=== PATIENT | male | born 1955 | race Caucasian/White ===

== ENCOUNTER 2017-12-15 10:30 | Emergency (ER) | payer OTHER ==
[2014-12-28 18:00] VITALS: Wt 67.1 kg
[~2017-12-15 10:30] MED LIST: MECL-81 PO; METF-410 PO; METF-420 PO; METXR500 PO; ONDA8TAB98 PO; PENI-24 PO; PER PO; PRAV40TA78 PO; TAMS0.4C25 PO; TUM500 PO
--- NOTE | 2017-12-15 10:33 | ER Report ---
History and Physical Time Seen By MD: 10:32 HPI/ROS CHIEF COMPLAINT: Nausea and vomiting HISTORY OF PRESENT ILLNESS: Patient is a 62-year-old male with history of type II diabetes who presents with a complaint of nausea with vomiting and crampy abdominal pain and watery diarrhea that began on Thursday. Patient also complaining of some chest pain and shortness of breath. This also has been present since Thursday. No fevers or chills. Patient is a nonsmoker. Patient denies any history of heart disease.Patient's son had contracted influenza a few weeks ago developed acute respiratory distress syndrome and was transferred to [facility]. They have been traveling back and forth to [place] to visit their son. REVIEW OF SYSTEMS: Constitutional: No fever, no chills. Eyes: No discharge. ENT: No sore throat. Cardiovascular: Chest discomfort, no palpitations Respiratory: No cough, reports some dyspnea Gastrointestinal: Generalized abdominal pain, nausea, vomiting and diarrhea no blood Genitourinary: No hematuria. Musculoskeletal: No back pain. Skin: No rashes. Neurological: No headache. Allergies: Coded Allergies: onion (Verified Allergy, Mild, NAUSEA/VOMITING, 12/15/17) Home Meds Reported Medications Canagliflozin (INVOKANA) 300 Mg Tablet, 300 MG PO QDAY 12/15/17 Discontinued Reported Medications Pravastatin Sodium (PRAVASTATIN SODIUM) 40 Mg Tablet, 1 TAB PO QHS, #90 11/22/15 Metformin Hcl (METFORMIN HCL) 500 Mg Tablet, 1 TAB PO 3XW, #360 11/22/15 Discontinued Scripts Ondansetron (ONDANSETRON ODT) 8 Mg Tab.rapdis, 8 MG PO Q4-6H, #10 Prov:SALIMA ELIZABETH DO 01/21/16 Meclizine Hcl (ANTIVERT) 25 Mg Tablet, 25 MG PO QID, #20 Prov:SALIMA ELIZABETH DO 01/21/16 Past Medical/Surgical History Past medical history significant for type II diabetes. Hx Smoking: No Smoking Status: Never Smoker Hx Substance Use Disorder: No Hx Alcohol Use: No Constitutional Vital Sign - Last 24 Hours 12/15/17 12/15/17 12/15/17 12/15/17 10:37 10:37 10:45 11:00 Temp 97.8 Pulse 86 84 75 Resp 20 26 17 B/P (MAP) 122/85 122/85 (97) 127/85 (99) 123/83 (96) Pulse Ox 90 92 93 O2 Delivery Room Air 12/15/17 12/15/17 11:02 11:15 Resp 23 B/P (MAP) 118/80 (93) Pulse Ox 92 O2 Flow Rate 2.0 Physical Exam General Appearance: The patient is alert, has no immediate need for airway protection and no signs of toxicity. Eyes: Pupils equal and round no pallor or injection. ENT, Mouth: Mucous membranes are moist. Respiratory: There are no retractions, lungs are clear to auscultation. Cardiovascular: Regular rate and rhythm. Gastrointestinal: Abdomen is soft and non tender, no masses, bowel sounds normal. Neurological: Awake and alert Skin: Warm and dry, no rashes. Musculoskeletal: Neck is supple non tender. Extremities are nontender, nonswollen and have full range of motion. Medical Decision Making Data Points Result Diagram: 12/15/17 1042 12/15/17 1042 Laboratory Hematology Test 12/15/17 10:32 12/15/17 10:42 12/15/17 10:47 Urine Color Yellow Urine Clarity Clear Urine pH 6.0 pH (4.8-9.5) Urine Specific [place] 1.030 Urine Protein 30 mg/dL (NEGATIVE) Urine Glucose (UA) >1000 mg/dL (NEGATIVE) Urine Ketones >=80 mg/dL (NEGATIVE) Urine Blood Trace lysed (NEGATIVE) Urine Nitrite Negative (NEGATIVE) Urine Bilirubin Moderate (NEGATIVE) Urine Urobilinogen 0.2 mg/dL (0.2-1.9) Urine Leukocyte Esterase Negative (NEGATIVE) Urine RBC None /HPF (0-2/HPF) Urine WBC 0-1 /HPF (0-5/HPF) Urine Squamous Epithelial Cells None /LPF (</=FEW) Urine Renal Epithelial Cells /LPF (NONE-FEW) Urine Bacteria Negative /HPF (NONE-FEW) Urine Mucus None /HPF (NONE-FEW) Red Blood Count 5.98 M/uL (4.00-5.60) Mean Corpuscular Volume 91.9 fL (80.0-96.0) Mean Corpuscular Hemoglobin 31.5 pg (26.0-33.0) Mean Corpuscular Hemoglobin Concent 34.3 g/dL (32.0-36.0) Red Cell Distribution Width 13.5 % (11.5-14.5) Mean Platelet Volume 8.9 fL (7.2-11.1) Neutrophils (%) (Auto) 74.7 % (39.4-72.5) Lymphocytes (%) (Auto) 16.1 % (17.6-49.6) Monocytes (%) (Auto) 7.9 % (4.1-12.4) Eosinophils (%) (Auto) 0.8 % (0.4-6.7) Basophils (%) (Auto) 0.5 % (0.3-1.4) Nucleated RBC Relative Count (auto) 0.1 /100WBC Neutrophils # (Auto) 5.4 K/uL (2.0-7.4) Lymphocytes # (Auto) 1.2 K/uL (1.3-3.6) Monocytes # (Auto) 0.6 K/uL (0.3-1.0) Eosinophils # (Auto) 0.1 K/uL (0.0-0.5) Basophils # (Auto) 0.0 K/uL (0.0-0.1) Nucleated RBC Absolute Count (auto) 0.01 K/uL Prothrombin Time 13.6 seconds (12.0-14.4) Prothromb Time International Ratio 1.04 Activated Partial Thromboplast Time 26 seconds (23-35) Sodium Level 139 mmol/L (137-145) Potassium Level 4.5 mmol/L (3.5-5.0) Chloride Level 101 mmol/L (98-107) Carbon Dioxide Level 13 mmol/L (22-30) Blood Urea Nitrogen 24 mg/dl (9-21) Creatinine 0.90 mg/dl (0.66-1.25) Glomerular Filtration Rate Calc > 60.0 Random Glucose 203 mg/dl (75-110) Calcium Level 8.7 mg/dl (8.4-10.2) Total Bilirubin 0.9 mg/dl (0.2-1.3) Aspartate Amino Transf (AST/SGOT) 43 U/L (0-35) Alanine Aminotransferase (ALT/SGPT) 49 U/L (0-56) Alkaline Phosphatase 85 U/L (0-126) Troponin I < 0.012 ng/ml Total Protein 8.2 gm/dl (6.3-8.2) Albumin 4.6 g/dl (3.5-5.0) Lipase 43 U/L (23-300) Influenza Virus Type A (PCR) Negative (NEGATIVE) Influenza Virus Type B (PCR) Negative (NEGATIVE) Chemistry Test 12/15/17 10:32 12/15/17 10:42 12/15/17 10:47 Urine Color Yellow Urine Clarity Clear Urine pH 6.0 pH (4.8-9.5) Urine Specific [place] 1.030 Urine Protein 30 mg/dL (NEGATIVE) Urine Glucose (UA) >1000 mg/dL (NEGATIVE) Urine Ketones >=80 mg/dL (NEGATIVE) Urine Blood Trace lysed (NEGATIVE) Urine Nitrite Negative (NEGATIVE) Urine Bilirubin Moderate (NEGATIVE) Urine Urobilinogen 0.2 mg/dL (0.2-1.9) Urine Leukocyte Esterase Negative (NEGATIVE) Urine RBC None /HPF (0-2/HPF) Urine WBC 0-1 /HPF (0-5/HPF) Urine Squamous Epithelial Cells None /LPF (</=FEW) Urine Renal Epithelial Cells /LPF (NONE-FEW) Urine Bacteria Negative /HPF (NONE-FEW) Urine Mucus None /HPF (NONE-FEW) White Blood Count 7.2 k/uL (4.5-11.0) Red Blood Count 5.98 M/uL (4.00-5.60) Hemoglobin 18.9 g/dL (14.0-18.0) Hematocrit 54.9 % (42.0-52.0) Mean Corpuscular Volume 91.9 fL (80.0-96.0) Mean Corpuscular Hemoglobin 31.5 pg (26.0-33.0) Mean Corpuscular Hemoglobin Concent 34.3 g/dL (32.0-36.0) Red Cell Distribution Width 13.5 % (11.5-14.5) Platelet Count 170 K/uL (150-450) Mean Platelet Volume 8.9 fL (7.2-11.1) Neutrophils (%) (Auto) 74.7 % (39.4-72.5) Lymphocytes (%) (Auto) 16.1 % (17.6-49.6) Monocytes (%) (Auto) 7.9 % (4.1-12.4) Eosinophils (%) (Auto) 0.8 % (0.4-6.7) Basophils (%) (Auto) 0.5 % (0.3-1.4) Nucleated RBC Relative Count (auto) 0.1 /100WBC Neutrophils # (Auto) 5.4 K/uL (2.0-7.4) Lymphocytes # (Auto) 1.2 K/uL (1.3-3.6) Monocytes # (Auto) 0.6 K/uL (0.3-1.0) Eosinophils # (Auto) 0.1 K/uL (0.0-0.5) Basophils # (Auto) 0.0 K/uL (0.0-0.1) Nucleated RBC Absolute Count (auto) 0.01 K/uL Prothrombin Time 13.6 seconds (12.0-14.4) Prothromb Time International Ratio 1.04 Activated Partial Thromboplast Time 26 seconds (23-35) Glomerular Filtration Rate Calc > 60.0 Calcium Level 8.7 mg/dl (8.4-10.2) Total Bilirubin 0.9 mg/dl (0.2-1.3) Aspartate Amino Transf (AST/SGOT) 43 U/L (0-35) Alanine Aminotransferase (ALT/SGPT) 49 U/L (0-56) Alkaline Phosphatase 85 U/L (0-126) Troponin I < 0.012 ng/ml Total Protein 8.2 gm/dl (6.3-8.2) Albumin 4.6 g/dl (3.5-5.0) Lipase 43 U/L (23-300) Influenza Virus Type A (PCR) Negative (NEGATIVE) Influenza Virus Type B (PCR) Negative (NEGATIVE) Coagulation Test 12/15/17 10:42 Prothrombin Time 13.6 seconds Prothromb Time International Ratio 1.04 Activated Partial Thromboplast Time 26 seconds Urinalysis Test 12/15/17 10:32 Urine Color Yellow Urine Clarity Clear Urine pH 6.0 pH (4.8-9.5) Urine Specific [place] 1.030 Urine Protein 30 mg/dL (NEGATIVE) Urine Glucose (UA) >1000 mg/dL (NEGATIVE) Urine Ketones >=80 mg/dL (NEGATIVE) Urine Blood Trace lysed (NEGATIVE) Urine Nitrite Negative (NEGATIVE) Urine Bilirubin Moderate (NEGATIVE) Urine Urobilinogen 0.2 mg/dL (0.2-1.9) Urine Leukocyte Esterase Negative (NEGATIVE) Urine RBC None /HPF (0-2/HPF) Urine WBC 0-1 /HPF (0-5/HPF) Urine Squamous Epithelial Cells None /LPF (</=FEW) Urine Renal Epithelial Cells /LPF (NONE-FEW) Urine Bacteria Negative /HPF (NONE-FEW) Urine Mucus None /HPF (NONE-FEW) EKG/Imaging EKG Interpretation EKG shows normal sinus rhythm with ventricular rate of 84 bpm with a right bundle branch block. Monitor Interpretation: Normal Sinus Rhythm Imaging [place] [facility] [place]IENT NAME: Yasir Marie : 1955 MR: [id number] V: [id number] EXAM DATE: ORDERING PHYSICIAN: CARINA ELDRIDGE TECHNOLOGIST: Location: [facility] [place] Patient: Yasir Marie : 1955 Visit/Account:[id number] Date of Sevice: 12/15/2017 EXAMINATION: CT abdomen and pelvis with contrast COMPARISON: None. HISTORY: Crampy abdominal pain. PROCEDURE: Multiplanar contrast enhanced CT of the abdomen and pelvis with 75 mL intravenous Isovue 370. One of the following dose optimization techniques was utilized in the performance of this exam: Automated exposure control; adjustment of the mA and/or kV according to the patient's size; or use of an iterative reconstruction technique. Specific details can be referenced in the facility's radiology CT exam operational policy. FINDINGS: Visualized thorax: Negative. Liver: Advanced hepatic steatosis. Gallbladder and biliary system: Negative Spleen: Spleen size is normal. Pancreas: Negative. Adrenal glands: Negative. Kidneys and bladder: No renal mass or evidence of an obstructive uropathy. Urinary bladder is unremarkable. Vessels: Mild aortoiliac atherosclerosis. No abdominal aortic aneurysm. Portal venous system and IVC are unremarkable. Bowel and mesentery: Stomach is within normal limits. Small bowel and appendix are unremarkable. Small amount of stool in the colon. Pancolonic mild diverticulosis. No bowel or mesenteric inflammation. Pelvic organs: Enlarged and heterogeneous prostate. Lymph nodes: No adenopathy. Free air/free fluid: None. Abdominal wall and osseous structures: Within normal limits. IMPRESSION: 1. No findings of acute disease in the abdomen or pelvis. 2. Advanced hepatic steatosis. 3. Pancolonic diverticulosis. No diverticulitis. Report Dictated By: Jesús Juárez MD at 12/15/2017 12:11 PM Report E-Signed By: Jesús Juárez MD at 12/15/2017 12:16 PM WSN:[id number] [place] [facility] [place]IENT NAME: Yasir Marie : 1955 MR: [id number] V: [id number] EXAM DATE: ORDERING PHYSICIAN: CARINA ELDRIDGE TECHNOLOGIST: Location: [facility] [place] Patient: Yasir Marie : 1955 Visit/Account:[id number] Date of Sevice: 12/15/2017 Technique: CHEST PA AND LAT HISTORY: Shortness of breath while lying down Comparison studies: Chest radiograph August 08, 2010 FINDINGS: No lobar airspace consolidation. No pleural effusion. The cardiac silhouette is unremarkable. IMPRESSION: 1. No acute cardiopulmonary process. Report Dictated By: Dillon White DO at 12/15/2017 11:26 AM Report E-Signed By: Dillon White DO at 12/15/2017 11:28 AM WSN:[id number] ED Course/Re-evaluation Clinical Indication for ER IV: Hydration, IV Access ED Course 12/15/2017 1:13:16 pm patient was admitted to the emergency department history physical exam was performed. Differential diagnosis was formulated. Patient received 2 L of IV fluids along with a total of 8 mg of Zofran with improvement of symptoms. Discussed with family that based on blood work patient is dehydrated and encouraged fluids at home. Abdominal CT is unremarkable EKG and troponin are negative. Influenza screen was negative as well. Plan at this time will be discharged home with close follow-up with primary care provider and to return to the emergency department if symptoms worsen. Decision to Disposition Date: Dec 15, 2017 Decision to Disposition Time: 13:14 Depart Departure Latest Vital Signs Vital Signs Date Time Temp Pulse Resp B/P (MAP) Pulse Ox O2 Delivery O2 Flow Rate FiO2 12/15/17 11:15 23 118/80 (93) 92 12/15/17 11:02 2.0 12/15/17 11:00 75 12/15/17 10:37 97.8 Room Air Impression: Primary Impression: Dehydration Additional Impression: Nausea & vomiting Condition: Improved Disposition: HOME OR SELF-CARE Referrals: GWENDOLYN IVERSON MD (PCP) 2 Days If symptoms persist New Scripts Diphenoxylate Hcl/Atropine (LOMOTIL TABLET) 1 Each Tablet 1 EACH PO Q4H for diarrhea, #16 TAB 0 Refills Prov: CARINA ELDRIDGE MD 12/15/17 Ondansetron (ZOFRAN ODT) 4 Mg Tab.rapdis 4 MG PO Q8H Y for NAUSEA, #20 TAB.HAWK 0 Refills Prov: CARINA ELDRIDGE MD 12/15/17 Departure Forms: ER Transition Record, Medications Reconciliation, Off Work/ School Form, School or Work Release?: Work Number of days to be released: 2 Patient Portal Information Patient Instructions: Acute Nausea and Vomiting (ED), Dehydration (ED) Problem Qualifiers Additional Impression: Nausea & vomiting Vomiting type: unspecified Vomiting Intractability: unspecified Qualified Codes: R11.2 - Nausea with vomiting, unspecified CARINA ELDRIDGE MD Dec 15, 2017 10:33
[2017-12-15] MEDS ORDERED: LR(*) 1000 ML BAG 1,000 ML IV ONE (10:44)
[2017-12-15] MEDS ORDERED: ONDANSETRON 4 MG/2 ML VIAL IVP ONE ×2 (10:45→12:05)
[2017-12-15] MEDS ORDERED: KETOROLAC 15 MG/ML VIAL IVP ONE (10:45)
[2017-12-15] MEDS ORDERED: CANA300T PO (10:46)
--- NOTE | 2017-12-15 10:54 | EKG ---
FACILITY: PATIENT NAME: ALLI NUNES : [id number] MR: [id number] V: [id number] EXAM DATE: ORDERING PHYSICIAN: CARINA ELDRIDGE TECHNOLOGIST: JOSS Shannon Reason : SOB Blood Pressure : / mmHG Vent. Rate : 084 BPM Atrial Rate : 084 BPM P-R Int : 166 ms QRS Dur : 146 ms QT Int : 418 ms P-R-T Axes : -05 236 011 degrees QTc Int : 493 ms Normal sinus rhythm Right bundle branch block Abnormal ECG When compared with ECG of 21-JAN-2016 10:07, T wave inversion now evident in Anterior leads Confirmed by AURORA FRANCE ([id number]) on 12/17/2017 2:13:40 PM Referred By: CHENTE Confirmed By:AURORA FRANCE
[2017-12-15 10:56] LABS: PLATELET COUNT, AUTOMATED 170 K/uL (150-450)
[2017-12-15 11:02] LABS: INR 1.04
[2017-12-15] MEDS ORDERED: NS(*) 0.9% 1000 ML BAG 1,000 ML IV ONE (11:30)
--- NOTE | 2017-12-15 11:32 | RADIOLOGY IMAGING REPORT ---
FACILITY: [facility] - [place] PATIENT NAME: Yasir Marie : 1955 MR: [id number] V: [id number] EXAM DATE: ORDERING PHYSICIAN: CARINA ELDRIDGE TECHNOLOGIST: Location: [facility] Patient: Yasir Marie : 1955 Visit/Account:[id number] Date of Sevice: 12/15/2017 Technique: CHEST PA AND LAT HISTORY: Shortness of breath while lying down Comparison studies: Chest radiograph August 08, 2010 FINDINGS: No lobar airspace consolidation. No pleural effusion. The cardiac silhouette is unremarka ble. IMPRESSION: 1. No acute cardiopulmonary process. Report Dictated By: Dillon White DO at 12/15/2017 11:26 AM Report E-Signed By: Dillon White DO at 12/15/2017 11:28 AM WSN:[id number]
[2017-12-15] MEDS ORDERED: IOPAMIDOL 76% 75 ML INFUS BTL 75 ML ONE (11:38)
--- NOTE | 2017-12-15 12:20 | RADIOLOGY IMAGING REPORT ---
FACILITY: [facility] - [place] PATIENT NAME: Yasir Marie : 1955 MR: [id number] V: [id number] EXAM DATE: ORDERING PHYSICIAN: CARINA ELDRIDGE TECHNOLOGIST: Location: [facility] Patient: Yasir Marie : 1955 Visit/Account:[id number] Date of Sevice: 12/15/2017 EXAMINATION: CT abdomen and pelvis with contrast COMPARISON: None. HISTORY: Crampy abdominal pain. PROCEDURE: Multiplanar contrast enhanced CT of the abdomen and pelvis with 75 mL intravenous Isovue 3 70. One of the following dose optimization techniques was utilized in the performance of this exam: A utomated exposure control; adjustment of the mA and/or kV according to the patient's size; or use of an iterative reconstruction technique. Specific details can be referenced in the facility's radiolo gy CT exam operational policy. FINDINGS: Visualized thorax: Negative. Liver: Advanced hepatic steatosis. Gallbladder and biliary system: Negative Spleen: Spleen size is normal. Pancreas: Negative. Adrenal glands: Negative. Kidneys and bladder: No renal mass or evidence of an obstructive uropathy. Urinary bladder is unrema rkable. Vessels: Mild aortoiliac atherosclerosis. No abdominal aortic aneurysm. Portal venous system and IVC are unremarkable. Bowel and mesentery: Stomach is within normal limits. Small bowel and appendix are unremarkable. Smal l amount of stool in the colon. Pancolonic mild diverticulosis. No bowel or mesenteric inflammation. Pelvic organs: Enlarged and heterogeneous prostate. Lymph nodes: No adenopathy. Free air/free fluid: None. Abdominal wall and osseous structures: Within normal limits. IMPRESSION: 1. No findings of acute disease in the abdomen or pelvis. 2. Advanced hepatic steatosis. 3. Pancolonic diverticulosis. No diverticulitis. Report Dictated By: Jesús Juárez MD at 12/15/2017 12:11 PM Report E-Signed By: Jesús Juárez MD at 12/15/2017 12:16 PM WSN:[id number]
[2017-12-15 13:00] VITALS: BP 116/80
[2017-12-15] MEDS ORDERED: ONDA4TAB PO (13:16)
[2017-12-15] MEDS ORDERED: DIPH-1 PO (13:16)
== END 2017-12-15 13:23 | disposition home or self-care (01) ==
LOC: ER 10:35
DX: E86.0 Dehydration (principal); R11.2 Nausea with vomiting, unspecified
CPT/HCPCS: 71046; 74177; 81001; 83690; 84484; 85025; 85610; 85730; 87502; 93005; 96361; 96374; 96375; 96376; 99284; J1885; J2405; J7030; J7120; Q9967; 82040; 82247; 82310; 82374; 82435; 82565; 82947; 84075; 84132; 84155; 84295; 84450; 84460; 84520

== ENCOUNTER → 2018-10-05 | Outpatient (CLI) | payer OTHER ==
[2014-12-28 18:00] VITALS: BMI 23.8
[~2018-10-05] MED LIST changes: +BARIUM SULFATE 176 GM BTL PO ONE; +BARIUM SULFATE 340 GM POWD ONE; +CANA300T PO; +DIPH-1 PO; -METF-410 PO; -METF-420 PO; +METF-450 PO; +METF-452 PO; +ONDA4TAB PO
--- NOTE | 2018-10-05 12:03 | RADIOLOGY IMAGING REPORT ---
FACILITY: [facility] PATIENT NAME: Yasir Marie : 1955 MR: [id number] V: [id number] EXAM DATE: ORDERING PHYSICIAN: AURORA CACERES TECHNOLOGIST: Location: [facility] [place] Patient: Yasir Marie : 1955 Visit/Account:[id number] Date of Sevice: 10/05/2018 Exam type: CHEST PA LAT History: Shortness of breath Comparison: December 15, 2017. Findings: The lungs are free of acute effusions, infiltrates or edema. The cardiac silhouette is normal in siz e. Trachea is in midline. Small tiny metallic densities project in the soft tissues just above the left pulmonary apex and are unchanged when compared to the prior study IMPRESSION: 1. No acute cardiopulmonary process seen Report Dictated By: Johanna Carpenter MD at 10/05/2018 11:56 AM Report E-Signed By: Johanna Carpenter MD at 10/05/2018 11:59 AM WSN:[email or web address]
--- NOTE | 2018-10-05 15:26 | RADIOLOGY IMAGING REPORT ---
FACILITY[place] [facility] [place] NAME: Yasir Marie : 1955 MR: [id number] V: [id number] EXAM DATE: ORDERING PHYSICIAN: AURORA CACERES TECHNOLOGIST: Location: [facility] [place] Patient: Yasir Marie : 1955 Visit/Account:[id number] Date of Sevice: 10/05/2018 Exam type: XR UPPER GI & SM BOWEL History: Nausea Comparison: CT abdomen and pelvis December 15, 2017. Findings: Double contrast upper GI series was performed with thick and thin barium and air contrast. There is a small hiatal hernia and mild narrowing at the lower esophageal sphincter. A Schatzki ring is prese nt. At least moderate amount of gastroesophageal reflux was observed. No mucosal erosions identifie d. The barium was then followed throughout the normal-appearing small bowel to the unremarkable term inal ileum. The mucosal pattern appeared unremarkable. There is no evidence of bowel obstruction or extrinsic mass effect. Transit time to the right-sided colon was one hour and five minutes. The fl uoroscopy dose area product was 834.78 micro-Santana per meter squared IMPRESSION: 1. Small hiatal hernia with mild narrowing of the lower esophageal sphincter. At least moderate gas troesophageal reflux was observed. Remainder the upper GI series and small bowel follow-through is unremarkable Report Dictated By: Johanna Carpenter MD at 10/05/2018 3:00 PM Report E-Signed By: Johanna Carpenter MD at 10/05/2018 3:12 PM WSN:[email or web address]
--- NOTE | 2018-10-07 10:01 | RADIOLOGY IMAGING REPORT ---
FACILITY: [facility] - [place] PATIENT NAME: Yasir Marie : 1955 MR: [id number] V: [id number] EXAM DATE: ORDERING PHYSICIAN: AURORA CACERES TECHNOLOGIST: Location: [facility] - [place] Patient: Yasir Marie : 1955 Visit/Account:[id number] Date of Sevice: 10/05/2018 GALLBLADDER HISTORY: Postprandial bloating COMPARISON: CT abdomen pelvis December 15, 2017 FINDINGS: Gallbladder: Unremarkable; no stones or sludge. Liver: There is diffuse hepatic steatosis and a mildly enlarged liver which corresponds to the recent CT findings measuring 17.1 cm in length. There is slightly irregular hypoechoic regions seen adjace nt to the gallbladder which corresponds to an area of probable focal fatty sparing seen adjacent to t he gallbladder on the prior CT. There is acoustic shadowing which appears to be emanating from the a nterior abdominal wall although discrete mass is not seen Common duct: Normal, three mm diameter. Pancreas: Partially obscured by bowel, visualized aspects unremarkable. Right kidney: The kidney appears unremarkable measuring 11.4 cm in length. Resistive index is 0.52 Upper abdominal aorta and IVC: Patent. Ascites: None visualized. IMPRESSION: Diffuse hepatic steatosis with a focal area of probable focal fatty sparing adjacent to the gallbladd er. Liver is mildly enlarged Gallbladder appears sonographically unremarkable Report Dictated By: Johanna Carpenter MD at 10/05/2018 11:14 AM Report E-Signed By: Johanna Carpenter MD at 10/07/2018 9:51 AM WSN:[email or web address]
--- NOTE | 2018-10-07 10:53 | RADIOLOGY IMAGING REPORT ---
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 FINDINGS: Grayscale, duplex and color Doppler interrogation of the extracranial carotid and vertebral arteries was performed bilateral. On the right, peak systolic velocities within the common and internal carotid arteries are 86 and 107 cm/sec respectively. There is mild intimal thickening in the right common carotid artery right rodriguez tid bulb. Antegrade flow within the common, internal and external carotid arteries as well as verteb ral artery. ICA/CCA ratio 1.3. On the left, peak systolic velocities within the common and internal carotid arteries are 140 and 82 cm/sec respectively. There is mild intimal thickening in the left common carotid artery and a small amount of plaque at the left carotid bulb extending into the proximal left internal carotid artery. Antegrade flow within the common, internal and external carotid arteries as well as vertebral artery. ICA/CCA ratio 0.8. In zone three on the right there is a 2.5 x 1.5 x 0.5 cm lymph node with a minimal fatty hilum. Also noted is a 0.7 x 0.9 x 0.3 cm lymph node with a fatty hilum IMPRESSION: Mild intimal thickening seen in the common carotid arteries bilaterally with a small amount of plaque seen in the left carotid bulb extending into the proximal left internal carotid artery. No hemodyna mically significant lesions identified by velocity criteria 2. Lymph nodes are identified in zone th ree on the right. The largest measures 2.5 x 1.5 x 0.5 cm with a minimal fatty hilum. Clinical khadar elation needed. Velocity criteria are extrapolated from diameter data as defined by the Society of Radiologists in [place] [facility] Consensus Conference Radiology 2003; 229;340-346 Report Dictated By: Johanna Carpenter MD at 10/05/2018 11:23 AM Report E-Signed By: Johanna Carpenter MD at 10/07/2018 10:48 AM WSN:[email or web address]
== END ==
LOC: RAD 01:18
PROVIDERS: ATTEND Surgery
DX: K44.9 Diaphragmatic hernia without obstruction or gangrene (principal); K21.9 Gastro-esophageal reflux disease without esophagitis; R06.00 Dyspnea, unspecified; R11.0 Nausea; R14.0 Abdominal distension (gaseous); Z86.39 Personal history of other endocrine, nutritional and metabolic disease; I65.23 Occlusion and stenosis of bilateral carotid arteries; K76.0 Fatty (change of) liver, not elsewhere classified; R16.0 Hepatomegaly, not elsewhere classified
CPT/HCPCS: 71046; 74245; 76705; 93880

== ENCOUNTER → 2018-10-08 | Outpatient (CLI) | payer OTHER ==
[2014-12-28 18:00] VITALS: BMI 23.8
[~2018-10-08] MED LIST changes: -BARIUM SULFATE 176 GM BTL PO ONE; -BARIUM SULFATE 340 GM POWD ONE
[2018-10-08 11:57] LABS: PLATELET COUNT, AUTOMATED 210 K/uL (150-450)
== END ==
LOC: LAB 11:30
PROVIDERS: ATTEND Surgery
DX: E11.9 Type 2 diabetes mellitus without complications (principal); R42 Dizziness and giddiness; R53.83 Other fatigue
CPT/HCPCS: 36415; 82040; 82247; 82248; 82310; 82374; 82435; 82565; 82947; 83036; 84075; 84132; 84155; 84295; 84443; 84450; 84460; 84520; 85025

== ENCOUNTER → 2018-10-15 | Outpatient (CLI) | payer OTHER ==
[2014-12-28 18:00] VITALS: BMI 23.8
[~2018-10-15] MED LIST changes: +IOPAMIDOL 76% 100 ML INFUS BTL 100 ML ONE; +NS(*) 0.9% 50 ML BAG 50 ML ONE
--- NOTE | 2018-10-15 09:02 | EKG ---
FACILITY: [facility] [place] PATIENT NAME: ALLI NUNES : [id number] MR: [id number] V: [id number] EXAM DATE: ORDERING PHYSICIAN: AURORA CACERES TECHNOLOGIST: JEOVANNY Test Reason : PRE OP Blood Pressure : / mmHG Vent. Rate : 071 BPM Atrial Rate : 071 BPM P-R Int : 162 ms QRS Dur : 138 ms QT Int : 416 ms P-R-T Axes : 002 230 020 degrees QTc Int : 452 ms Normal sinus rhythm Right bundle branch block Abnormal ECG When compared with ECG of 15-DEC-2017 10:45, No significant change was found Confirmed by DARIO GARCIA ([id number]) on 10/15/2018 8:08:14 PM Referred By: MORRIS Confirmed By:DARIO GARCIA
--- NOTE | 2018-10-15 11:27 | RADIOLOGY IMAGING REPORT ---
FACILITY: [facility] PATIENT NAME: Yasir Marie : 1955 MR: [id number] V: [id number] EXAM DATE: ORDERING PHYSICIAN: AURORA CACERES TECHNOLOGIST: Location: [facility] Patient: Yasir Marie : 1955 Visit/Account:[id number] Date of Sevice: 10/15/2018 Study: CT scan of the neck with intravenous contrast Indication: History of cancerous neck tumor, lymphadenopathy Contrast utilized:100 mL Isovue 370 Technique: Multiple axial images were obtained through the neck following the intravenous administrat ion of iodinated contrast. Coronal and sagittal two-dimensional reconstructions were made from the original data set. One of the following dose optimization techniques was utilized in the performance of this exam: Autom ated exposure control; adjustment of the mA and/or kV according to the patient's size; or use of an i terative reconstruction technique. Specific details can be referenced in the facility's radiology C T exam operational policy. Examination demonstrates no evidence of neck mass. There is no significant cervical adenopathy identi fied. There is a prominent lymph node present within the left level II region. This does not meet the size criteria for an abnormal lymph node. The tongue base and floor of mouth are unremarkable. There is no evidence of abnormality of the parotid or submandibular glands.1 The thyroid gland is unremarkable. The airway is unremarkable. The visualized bony structures are unremarkable. There is no evidence of abnormality of the visualize d superior mediastinum or lung apices. IMPRESSION: No significant abnormality identified. Report Dictated By: Thomas Geronimo at 10/15/2018 10:59 AM Report E-Signed By: Thomas Geronimo at 10/15/2018 11:20 AM WSN:[id number]
--- NOTE | 2018-10-15 13:38 | RADIOLOGY IMAGING REPORT ---
FACILITY: [facility] PATIENT NAME: Yasir Marie : 1955 MR: [id number] V: [id number] EXAM DATE: ORDERING PHYSICIAN: AURORA CACERES TECHNOLOGIST: Location: [facility] Patient: Yasir Marie : 1955 Visit/Account:[id number] Date of Sevice: 10/15/2018 CT CTA CHEST W & W/O CON HISTORY: History of colon cancer, history of tumor neck, history of lymphadenopathy, history of aort ic aneurysm ADDITIONAL HISTORY: None. TECHNIQUE: CTA chest with intravenous contrast. Axial imaging acquired following administration of IV contrast timed for maximum opacification of the pulmonary arterial vasculature. Slab 3-D MIP fercho nstructed images were also created for further evaluation and interpretation. Reconstruction of the [facility] data set includes multiplanar 2-D in the sagittal and coronal planes and 3-D reconstructed jarrell nal slab MIP series. 3-D images were created by the technologist.Dose Lowering Technique One of the following dose optimization techniques was utilized in the performance of this exam: Autom ated exposure control; adjustment of the mA and/or kV according to the patient's size; or use of an i terative reconstruction technique. Specific details can be referenced in the facility's radiology C T exam operational policy. CONTRAST: 100 mL Isovue-370 COMPARISON: CTA of the chest August 08, 2010 FINDINGS: Lungs/pleura: There are mild dependent changes in the lower lobes. There is a 4 mm part solid groun dglass nodule in the right upper lobe best seen on image 28 of series 3 and image 92 of series 7 Heart/vessels: There is no evidence of an aortic aneurysm or dissection. Mild to moderate coronary artery calcifications are present Mediastinum/lymph nodes: In the prevascular space there is a 1.4 x 0.8 cm enhancing/partially calcif ied lymph node that appears unchanged when compared to the prior study. In the AP window there is a 1.3 x 1 cm enhancing/partially calcified lymph node that also remains unchanged. These lymph nodes a ppear more hyperdense than on the prior study. Visualized upper abdomen: Hepatic steatosis. Mild thickening the adrenal glands Bones/soft tissues: No aggressive appearing bone lesions are seen Additional findings: None IMPRESSION: There is no evidence of an abdominal aortic aneurysm or dissection. Mild to moderate coronary artery calcifications are present In the prevascular space and AP window there are enhancing/partially calcified lymph nodes that appea r unchanged in size when compared to the prior study although appear more hyperdense Hepatic steatosis Mild dependent changes in the lower lobes There is a 4 mm part solid groundglass nodule in the right upper lobe as described above not definiti vely appreciated on the prior study [employer] FOLLOW-UP GUIDELINES FOR NEWLY DETECTED INCIDENTAL NODULES IN PERSONS 35 YEARS OF AGE OR OLDER. *These recommendations do NOT apply to lung cancer screening, patients with immunosuppression or roly ents with a known primary malignancy. SOLITARY SUBSOLID NODULE GROUND GLASS: If nodule size is < 6 mm: * No routine follow-up. If nodule size is > or equal to 6 mm: * CT at 6-12 months to confirm persistence, then CT every 2 years until 5 years if unchanged. PART SOLID: If nodule size is < 6 mm: * No routine follow-up. If nodule size is > or equal to 6 mm with solid component < 6 mm: * CT at 3-6 months to confirm persistence. If unchanged and solid component remains < 6 mm, annual CT for 5 years. If nodule size is > or equal to 6 mm with solid component > or equal to 6 mm: * CT at 3-6 months to confirm persistence. If unchanged, should be considered highly suspicious. LOW RISK PATIENT: Minimal or absent history of tobacco use and of other known risk factors. HIGH RISK PATIENT: Tobacco use, family history of lung cancer, upper pulmonary lobe location of nodul e, presence of emphysema, pulmonary fibrosis, older age. Conor H, Levi DP, Lucy JM, et al. Guidelines for Management of Incidental Pulmonary Nodules Det ected on CT Images: From the Fleischner Society 2017. Radiology. uchnipnReport Dictated By: Johanna Carpenter MD at 10/15/2018 1:19 PM Report E-Signed By: Johanna Carpenter MD at 10/15/2018 1:34 PM WSN:[id number]
== END ==
LOC: CT 01:50
PROVIDERS: ATTEND Surgery
DX: I25.10 Atherosclerotic heart disease of native coronary artery without angina pectoris (principal); R91.8 Other nonspecific abnormal finding of lung field; R59.0 Localized enlarged lymph nodes; I45.10 Unspecified right bundle-branch block; R94.31 Abnormal electrocardiogram [ECG] [EKG]
CPT/HCPCS: 70491; 71275; 74175; 93005; J7050; Q9967

== ENCOUNTER 2018-10-20 20:30 | Emergency (ER) | payer OTHER ==
[2014-12-28 18:00] VITALS: Wt 69.9 kg
[~2018-10-20 20:30] MED LIST changes: -IOPAMIDOL 76% 100 ML INFUS BTL 100 ML ONE; -NS(*) 0.9% 50 ML BAG 50 ML ONE
--- NOTE | 2018-10-20 20:34 | ER Report ---
History and Physical Time Seen By MD: 20:34 HPI/ROS CHIEF COMPLAINT: Left ankle injury HISTORY OF PRESENT ILLNESS: 63-year-old male presents unable to bear weight on his left ankle. Is grossly swollen and deformed. Patient describes a twisting mechanism of injury. Patient notes 4/10 dull throbbing pain aggravated by movement and palpation. Patient is able to wiggle his toes. Allergies: Coded Allergies: onion (Verified Allergy, Mild, NAUSEA/VOMITING, 10/20/18) Home Meds Active Scripts Oxycodone Hcl/Acetaminophen (PERCOCET 5-325 MG TABLET) 1 Each Tablet, 1 EACH PO Q4-6H PRN for PAIN, #20 Prov:CARTERMAYELINJacqueline Sheldon DO 10/20/18 Reported Medications Empagliflozin (Jardiance) 25 Mg Tablet, 1 TAB PO QDAY 10/20/18 Glipizide (GLIPIZIDE XL) 5 Mg Tab.er.24, 5 MG PO QDAY 10/20/18 Metformin Hcl (METFORMIN HCL) 500 Mg Tablet, 2 TAB PO QDAY, TAB 10/20/18 Discontinued Reported Medications Canagliflozin (INVOKANA) 300 Mg Tablet, 300 MG PO QDAY 12/15/17 Discontinued Scripts Diphenoxylate Hcl/Atropine (LOMOTIL TABLET) 1 Each Tablet, 1 EACH PO Q4H for diarrhea, #16 TAB 0 Refills Prov:CARINA ELDRIDGE MD 12/15/17 Ondansetron (ZOFRAN ODT) 4 Mg Tab.rapdis, 4 MG PO Q8H PRN for NAUSEA, #20 TAB.HAWK 0 Refills Prov:CARINA ELDRIDGE MD 12/15/17 Reviewed Nurses Notes: Yes Old Medical Records Reviewed: Yes Hx Smoking: No Smoking Status: Never Smoker Hx Substance Use Disorder: No Hx Alcohol Use: No Constitutional Vital Sign - Last 24 Hours 10/20/18 10/20/18 10/20/18 20:35 20:36 21:00 Temp 98.1 Pulse 77 Resp 18 B/P (MAP) 149/85 (106) 149/85 111/66 (81) Pulse Ox 88 O2 Delivery Room Air Physical Exam General appearance: Alert no distress. Respiratory: Chest is non tender, lungs are clear to auscultation. Cardiac: Regular rate and rhythm Extremities: Examination of the left lower extremity reveals gross soft tissue swelling about the ankle and deformity. All digits are neurovascularly intact. DIFFERENTIAL DIAGNOSIS: After history and physical exam differential diagnosis w as considered for sprain, strain, fracture, dislocation, contusion Medical Decision Making ED Course/Re-evaluation ED Course Patient was admitted to an examination room. H&P was done. The differential diagnosis was considered. Patient with a right ankle injury from twisting on ice. Patient has obvious deformity and swelling at the ankle. Diagnostic x- rays are performed. He has a trimalleolar fracture without dislocation. Patient's placed in a posterior and stirrup splint with significant cast padding and numerous Manoj wraps. His neurovascular function was noted to be intact post splinting. Patient be outfitted with crutches. He is given a prescription for Percocet 5/325 #20 for pain relief. He's also advised to take some ibuprofen for inflammatory pain relief. He's advised to contact [facility] tomorrow morning for an urgent follow-up appointment this week. He will likely need surgery on his ankle. Decision to Disposition Date: Oct 20, 2018 Decision to Disposition Time: 20:58 Depart Departure Latest Vital Signs Vital Signs Date Time Temp Pulse Resp B/P (MAP) Pulse Ox O2 Delivery O2 Flow Rate FiO2 10/20/18 21:00 111/66 (81) 10/20/18 20:36 98.1 77 18 88 Room Air Impression: Primary Impression: Trimalleolar fracture of left ankle Condition: Improved Disposition: HOME OR SELF-CARE Referrals: GWENDOLYN IVERSON MD (PCP) KRISTEL HERNANDEZ MD New Scripts Oxycodone Hcl/Acetaminophen (PERCOCET 5-325 MG TABLET) 1 Each Tablet 1 EACH PO Q4-6H PRN for PAIN, #20 Prov: MAYELIN MACHADO DO 10/20/18 Patient Instructions: Ankle Fracture (ED) Additional Instructions: Contact [facility] [phone] for follow-up in the next few days. You will likely need surgery on your ankle Problem Qualifiers Primary Impression: Trimalleolar fracture of left ankle Encounter type: initial encounter Fracture type: closed Qualified Codes: S82.852A - Displaced trimalleolar fracture of left lower leg, initial encounter for closed fracture MAYELIN MACHADO DO Oct 20, 2018 20:34
[2018-10-20] MEDS ORDERED: GLIXL5 PO (20:42)
[2018-10-20] MEDS ORDERED: METF-450 PO (20:42)
[2018-10-20] MEDS ORDERED: EMPA25TA PO (20:42)
[2018-10-20] MEDS ORDERED: OXYC-865 PO (20:59)
[2018-10-20 21:00] VITALS: BP 111/66
[2018-10-20] MEDS ORDERED: oxyCODONE/ACETAMIN 5/325MG TH 2 TAB/BOTTLE PO ONE (21:05)
--- NOTE | 2018-10-20 21:05 | RADIOLOGY IMAGING REPORT ---
FACILITY: PATIENT NAME: Yasir Marie : 1955 MR: [id number] V: [id number] EXAM DATE: ORDERING PHYSICIAN: MAYELIN MACHADO TECHNOLOGIST: Location: [facility] Patient: Yasir Marie : 1955 Visit/Account:[id number] Date of Sevice: 10/20/2018 INDICATION: twisted L ankle. DATE: 10/20/2018 8:55 PM. TECHNIQUE: ANKLE 3 VIEW MIN LEFT COMPARISON: None FINDINGS: An oblique fracture of the distal fibula is mildly comminuted and mildly displaced extendin g to the level of the mortise. There is also a small fracture at the tip of the medial malleolus. S oft tissues are most swollen on the lateral side, but there is also medial sided soft tissue swelling . IMPRESSION: 1. Oblique fracture of the distal fibula extends to the level of the mortise. 2. Medial malleolar fracture involving the malleolar tip. Report Dictated By: Alecia Maynard MD at 10/20/2018 8:55 PM Report E-Signed By: Alecia Maynard MD at 10/20/2018 9:00 PM WSN:[id number]
[2018-10-28] MEDS ORDERED: IBUP-136 PO (11:28)
== END 2018-10-20 21:21 | disposition home or self-care (01) ==
LOC: ER 21:10
DX: S82.852A Displaced trimalleolar fracture of left lower leg, initial encounter for closed fracture (principal)
CPT/HCPCS: 99283

== ENCOUNTER 2018-11-12 01:40 | Day surgery (SDC) | payer OTHER ==
[2014-12-28 18:00] VITALS: Ht 167.6 cm; Wt 64.4 kg
--- NOTE | 2018-10-28 12:48 | NUR ---
SPOKE WITH PT, COMPLETED PREOPERATIVE INTERVIEW, PT REPORTS RECENT LEFT ANKLE FX 11/09, PT ALSO REPORTS STOPPING ALL HIS ORAL DIABETIC MEDICATIONS, HE REPORTS FEELING REALLY GOOD, ASKED PT IF HE HAD INFORMED HIS PCP OF THIS, HE SAID NO, HE DENIES CHECKING HIS BS WELL, ADVISED PT TO CONTACT HIS PCP TO INFORM THEM OF HIM STOPPING HIS MEDICATIONS, ALSO ADVISED PT TO CONTACT DR. CACERES'S OFFICE REGARDING RECENT LEFT ANKLE FX TO MAKE SURE THIS WOULD NOT INTERFERE WITH HIS SCHEDULED COLONOSCOPY, PT IS FOLLOW UP WITH [facility] REGARDING HIS FX.
[~2018-11-12] VITALS: Ht 167.6 cm; Wt 64.4 kg
[2018-11-12] VITALS (8 sets, daily range): BP systolic 106–124; BP diastolic 67–92
[~2018-11-12 01:40] MED LIST changes: +EMPA25TA PO; +GLIXL5 PO; +IBUP-136 PO; +OXYC-865 PO
[2018-11-12] MEDS ORDERED: NORMOSOL R SOLN(*) 1000 ML BAG 1,000 ML IV PRN (06:30)
[2018-11-12] MEDS ORDERED: LIDOCAINE/SOD BICARB 8.4% SYR ID ONE (06:30)
[2018-11-12] MEDS ORDERED: PROPOFOL EMUL(*) 10MG/ML 20 ML 20 ML ONE ×3 (07:09→08:26)
[2018-11-12] MEDS ORDERED: PANT40TA65 PO (08:52)
--- NOTE | 2018-11-12 08:55 | Short(Outpt) Discharge Summary ---
Discharge Summary Reason for Hosp/Final Diag: (1) History of malignant neoplasm of rectum Status: Resolved Hospital Course & Plan: EGD with biopsies and esophageal dilation and colonoscopy with polypectomy x4 completed without problems. (2) GERD (gastroesophageal reflux disease) Status: Chronic (3) Dysphagia Status: Chronic Departure Discharge to: Home, Self Care Discharge Instructions Home Meds Active Scripts Pantoprazole Sodium (PANTOPRAZOLE SODIUM) 40 Mg Tablet.dr, 1 TAB PO DAILY, #60 TAB 6 Refills Prov:AURORA CACERES MD 11/12/18 Reported Medications Ibuprofen (IBUPROFEN) 200 Mg Capsule, 2 CAP PO PRN PRN for PAIN, CAPSULE 10/28/18 Empagliflozin (Jardiance) 25 Mg Tablet, 1 TAB PO QDAY 10/20/18 Glipizide (GLIPIZIDE XL) 5 Mg Tab.er.24, 5 MG PO QDAY 10/20/18 Metformin Hcl (METFORMIN HCL) 500 Mg Tablet, 1 TAB PO QDAY, TAB 10/20/18 Diet: Regular Activity: As Tolerated Special Instructions: Your upper endoscopy and colonoscopy were completed without problems and your prep was excellent (Good Job!!). I biopsied your esophagus and dilated it as well but I would like to start a medication to decrease stomach acid to allow your esophagus to heal. Take 1 pantoprazole tablet every morning on an empty stomach and wait 30 minutes before eating. I removed 4 small polyps from your colon and they were sent to pathology. My office will call you next week to schedule a follow up appointment for a couple of weeks from now to discuss all of these results and see how you're doing. Problem Qualifiers (1) GERD (gastroesophageal reflux disease): Esophagitis presence: with esophagitis Qualified Codes: K21.0 - Gastro- esophageal reflux disease with esophagitis (2) Dysphagia: Dysphagia type: esophageal phase Qualified Codes: R13.10 - Dysphagia, unspecified AURORA CACERES MD Nov 12, 2018 08:55
== END 2018-11-12 09:55 | disposition home or self-care (01) ==
LOC: OR 01:40
PROVIDERS: ATTEND Surgery
DX: K22.2 Esophageal obstruction (principal); K44.9 Diaphragmatic hernia without obstruction or gangrene; Z85.048 Personal history of other malignant neoplasm of rectum, rectosigmoid junction, and anus; D12.5 Benign neoplasm of sigmoid colon; K62.1 Rectal polyp; K57.90 Diverticulosis of intestine, part unspecified, without perforation or abscess without bleeding; E11.9 Type 2 diabetes mellitus without complications
CPT/HCPCS: 00813; 36416; 43239; 43248; 45385; 82948; 88305; 88313; J2704

== ENCOUNTER 2019-04-15 01:02 | Day surgery (SDC) | payer OTHER ==
[2014-12-28 18:00] VITALS: Ht 170.2 cm; Wt 69.4 kg
[~2019-04-15] VITALS: Ht 170.2 cm; Wt 69.4 kg
[~2019-04-15 01:02] MED LIST changes: +PANT40TA65 PO
[2019-04-15] MEDS ORDERED: PROPOFOL EMUL(*) 10MG/ML 20 ML 20 ML ONE (07:37)
[2019-04-15] MEDS ORDERED: ONDANSETRON 4 MG/2 ML VIAL ONE (07:37)
[2019-04-15] MEDS ORDERED: DEXAMETHASONE SOD 4 MG/ML VIAL ONE (07:37)
[2019-04-15] MEDS ORDERED: LIDOCAINE MPF 1% 5 ML VIAL ONE (07:37)
[2019-04-15] MEDS ORDERED: METOCLOPRAMIDE 10 MG/2 ML SDV ONE (07:37)
[2019-04-15] MEDS ORDERED: fentaNYL CITR 100 MCG/2 ML AMP ONE ×2 (07:39→07:40)
[2019-04-15] MEDS ORDERED: ROPIVACAINE 0.2% 20 ML VIAL ONE ×3 (07:41→08:47)
[2019-04-15] MEDS ORDERED: ROPIVACAINE 0.5% 20 ML VIAL ONE (07:42)
[2019-04-15] MEDS ORDERED: FAMOTIDINE 20 MG TAB PO ONE (07:45)
[2019-04-15] MEDS ORDERED: ceFAZolin(*) 1 GM VIAL 1 GM in NS(*) 0.9% 100 ML MINI-BAG 100 ML IVPB ONE (08:10)
[2019-04-15] MEDS ORDERED: ROPIVACAINE 0.2% 400 MG/200ML 250 ML CONINFUS ONE (08:10)
[2019-04-15] MEDS ORDERED: NORMOSOL R SOLN(*) 1000 ML BAG 1,000 ML IV PRN (08:10)
[2019-04-15] MEDS ORDERED: LIDOCAINE/SOD BICARB 8.4% SYR ID ONE (08:10)
[2019-04-15] MEDS ORDERED: MIDAZOLAM 2 MG/2 ML VIAL IVP PRN (08:10)
[2019-04-15 08:21] VITALS: BP 138/91
[2019-04-15] MEDS ORDERED: FAMOTIDINE(*) 20MG/50ML PREMIX 50 ML IVPB ONE (08:26)
[2019-04-15] MEDS ORDERED: BACITRACIN OINT 15 GM TUBE TP ONE ×2 (08:41→08:47)
[2019-04-15 11:51] VITALS: BP 135/94
[2019-04-15 12:30] VITALS: BP 122/72
--- NOTE | 2019-04-15 12:56 | OPERATIVE REPORT 1 ---
EVENT DATE: April 15, 2019 SURGEON: Oliver Boyce MD ANESTHESIOLOGIST: Jasson Jorge MD ANESTHESIA: General with block. FUNERAL DIRECTOR: Robert Beyer PA-C PREOPERATIVE DIAGNOSIS Delayed union/nonunion of fibula. POSTOPERATIVE DIAGNOSIS Delayed union/nonunion of fibula. PROCEDURE PERFORMED Lateral melleolus orif with ultrasound guided needle placement ESTIMATED BLOOD LOSS Minimal. TOURNIQUET TIME Less than 30 minutes. DESCRIPTION OF PROCEDURE Patient was brought to the operating room and placed in the supine position and a bump placed under the left hip to realign the left lower extremity. He was prepped and draped in normal sterile fashion using Prevail. Sterile stockinettes and U-drape were placed on the lower extremity. Stockinette was incised from above knee and held with Coban. Esmarch was then used to exsanguinate the lower extremity and tourniquet turned up to 300 mmHg. Incision was made directly over the lateral meniscus down to the subcutaneous tissue. The subcutaneous tissue was bluntly dissected down to the fibula. At this point, it was actually very difficult to see the nonunion on the outside. There was actually good healing. When I brought fluoroscopy in, AP and lateral, I was able to still see the line. I used an osteotome just to get through the outer cortex. Once I was able to do that and get inside, I was able to find that there was not much healing on the distal medial aspect of the fibula. I was able to get a rongeur in there, clean it out, open it up, took a curette and cleaned it up. There was very good bleeding and very good bone pleasant. At this point, I felt that I did not need bone grafting. I just needed to debride this and get good bleeding, which I had very good bleeding. At this time, I was able to approximate the fracture nonunion back again in the right position, brought fluoroscopy in and made sure it was in the right position. I then used a one-third tubular locking plate on the posterior lateral aspect of the bone. The fibula was under fluoroscopy. I placed the screws across it. The first screw was to bring the plate to the bone. The second screw was to lag through the fracture site, nonunion site, and the rest I locked. This was a Synthes one-third tubular locking plate with multiple locking screws. Once all the screws were filled and in good position, I brought fluoroscopy, AP and lateral. The fracture was in good position. The screws were in good position. The hardware was in good position. We closed using 3-0 Monocryl, 4-0 Monocryl and Prineo. The patient went to recovery with big bulky Kaur dressing. [facility]
[2019-04-15 13:00] VITALS: BP 110/77
[2019-04-15 13:14] VITALS: BP 110/73
[2019-04-15 13:18] VITALS: BP 102/87
--- NOTE | 2019-04-15 13:35 | NUR ---
1230 SBAR REPORT WAS RECEIVED FROM BETSY DOWNS. PATIENT IS ON 1 LITER NASAL CANNULA. HE DENIES ANY PAIN OR NAUSEA AND IS EATING AND DRINKING 1240 PATIENT USED THE URINAL AND 350 ML WAS EMPTIED OF CLEAR PALE YELLOW URINE 1305 PATIENT WAS MOVED TO ROOM AIR 1311 FINISHED DC INSTRUCTIONS WITH PATIENT AND . THEY VERBALIZED UNDERSTANDING 1314 BEGAN DOING ORTHOSTATICS. 1318 PATIENT WAS ABLE TO STAND WITH THE ASSISTANCE WITH CRUTCHES 1320 PATIENT BEGAN GETTING DRESSED 1330 IV WAS DC'D WITH CATH INTACT. PRESSURE DRESSING APPLIED 1335 PATIENT WAS TAKEN OUT VIA WHEELCHAIR. HE DENIES ANY PAIN OR NAUSEA. UNABLE TO WIGGLE TOES WITH BLOCK AND HE STATES HIS TOES ARE NUMB, CAP REFILL IS ALMOST INSTANTANEOUS, TOES ARE WARM AND PINK, AND WAS ABLE TO FEEL A STRONG PULSE BENEATH DRESSINGS. DRESSING REMAINS DRY AND INTACT. BLOCK CATHETER REMAINS IN PLACE WITH PATIENT. SEE DISCHARGE ASSESSMENT.
== END 2019-04-15 11:45 | disposition home or self-care (01) ==
LOC: OR 01:02
PROVIDERS: ATTEND Orthopaedic Surgery
DX: S82.402A Unspecified fracture of shaft of left fibula, initial encounter for closed fracture (principal); E11.9 Type 2 diabetes mellitus without complications
CPT/HCPCS: 27726; 36416; 76942; 82948; C1713; J0690; J1100; J2001; J2250; J2405; J2704; J2765; J2795; J3010